=== PATIENT | male | born 1995 | race African-American/Black ===

== ENCOUNTER 2019-07-05 12:33 | Emergency (ER) | payer OTHER ==
[2019-07-05] MEDS ORDERED: BUFFERED LIDOCAINE 10 ML SYRINGE SUBQ STA (13:22)
--- NOTE | 2019-07-05 13:22 | ED Physician Documentation ---
PD HPI UPPER EXT INJURY - Stated complaint Stated Complaint: RT HAND LAC - Chief complaint Chief Complaint: Laceration - History obtained from History obtained from: Patient (24-year-old gentleman with unknown tetanus status was doing dishes at home just prior to arrival and a dish broke and he cut his right, dominant hand. No other injuries. He denies weakness, numbness or tingling of the affected area.) Review of Systems Constitutional: reports: Reviewed and negative Cardiac: reports: Reviewed and negative Respiratory: reports: Reviewed and negative PD PAST MEDICAL HISTORY - Allergies Allergies/Adverse Reactions: Allergies Allergy/AdvReac Type Severity Reaction Status Date / Time No Known Drug Allergies Allergy Verified 07/05/19 12:42 PD ED PE NORMAL - Vitals Vital signs reviewed: Yes - General General: Alert and oriented X 3, Other (Anxious appearing gentleman) - Extremities Extremities: Other (There is a 3 cm laceration over the dorsum of the left thumb over the metacarpal. Is just into subcutaneous tissue, there is no tendon compromise. No distal neurovascular compromise. It is mostly linear but slightly L-shaped at the end.) - Neuro Neuro: Alert and oriented X 3, Normal speech - Psych Psych: Normal mood, Normal affect Results - Vitals Vitals: Vital Signs - 24 hr 07/05/19 12:40 Temperature 36.9 C Heart Rate 90 Respiratory 16 Rate Blood Pressure 135/60 H O2 Saturation 100 Oxygen O2 Source Room air Procedures - Laceration (location) R hand Length in cm: 3 Wound type: Linear, Superficial Neurovascular status: Sensory intact, Motor intact, Vascular intact Tendon involvement: Tendon intact Anesthesia: Lidocaine 1%, With bicarb Wound Preparation: Irrigated copiously NS Skin layer closure: Nylon, Interrupted, Size #-0 - enter number (4-0), Sutures - enter # (7) Other: Tetanus booster given Complexity: Simple Departure - Departure Disposition: 01 Home, Self Care Clinical Impression: Laceration Condition: Good Record reviewed to determine appropriate education?: Yes Instructions: ED Laceration All Comments: Come back for any signs of infection which would include: Redness, swelling, drainage, increased pain, or fevers. You can wash it soap and water. Keep it covered and moist with bacitracin ointment which is available over the counter; avoid neosporin. Follow-up with your physician in About 14 days for suture removal. Forms: Activity restrictions
[2019-07-05] MEDS ORDERED: BUFFERED LIDOCAINE 10 ML SYRINGE ONE (13:24)
[2019-07-05] MEDS ORDERED: HYDROcod/ACET 5/325 Prepack 4 PO STA (13:37)
[2019-07-05 13:47] VITALS: BP 128/78
[2019-07-05] MEDS ORDERED: TETANUS/DIPHTHERIA/PERTUSSIS 0.5 ML SYRINGE IM ONE (13:53)
== END 2019-07-05 14:01 | disposition home or self-care (01) ==
LOC: ED 12:33
DX: S61.411A Laceration without foreign body of right hand, initial encounter (principal); W26.8XXA Contact with other sharp object(s), not elsewhere classified, initial encounter; Y93.G1 Activity, food preparation and clean up; Y92.000 Kitchen of unspecified non-institutional (private) residence as the place of occurrence of the external cause; Z23 Encounter for immunization
CPT/HCPCS: 12002; 90471

== ENCOUNTER 2020-02-24 13:05 | Outpatient (CLI) | payer BC ==
[2020-02-24 16:53] LABS: BASOPHILS # (AUTO) 0.1 10^3/uL (0.0-0.1); BASOPHILS % (AUTO) 0.8 %; EOSINOPHILS # (AUTO) 0.1 10^3/uL (0.0-0.7); EOSINOPHILS % (AUTO) 1.1 %; HGB - HEMOGLOBIN 15.4 g/dL (14.0-18.0); LYMPHOCYTES # (AUTO) 1.7 10^3/uL (1.5-3.5); LYMPHOCYTES % (AUTO) 22.6 %; MEAN CORPUSCULAR HGB CONC 33.3 g/dL (32.0-36.0); MEAN PLATELET VOLUME 11.8 fL (7.4-11.4); MONOCYTES # (AUTO) 0.5 10^3/uL (0.0-1.0); MONOCYTES % (AUTO) 6.6 %; NEUTROPHILS # (AUTO) 5.1 10^3/uL (1.5-6.6); NEUTROPHILS % (AUTO) 68.6 %; PLT - PLATELET COUNT 141 10^3/uL (130-450); RED BLOOD COUNT 4.97 10^6/uL (4.70-6.10); RED CELL DISTRIBUTION WIDTH 12.8 % (12.0-15.0); WHITE BLOOD COUNT 7.4 x10^3/uL (4.8-10.8)
[2020-02-24 17:04] LABS: ALBUMIN 4.8 g/dL (3.2-5.5); BILIRUBIN,TOTAL 0.5 mg/dL (0.2-1.0); CALCIUM 9.6 mg/dL (8.5-10.3); TOTAL PROTEIN 7.2 g/dL (6.7-8.2)
== END 2020-02-24 23:59 | disposition home or self-care (01) ==
LOC: LAB.S 13:05
PROVIDERS: ATTEND Physician Assistant Medical
DX: R19.4 Change in bowel habit (principal); R53.83 Other fatigue
CPT/HCPCS: 36415; 80053; 84443; 85025

== ENCOUNTER 2020-04-30 08:00 | Outpatient (CLI) | payer BC ==
[2020-04-30 15:28] LABS: BASOPHILS # (AUTO) 0.1 10^3/uL (0.0-0.1); EOSINOPHILS # (AUTO) 0.2 10^3/uL (0.0-0.7); EOSINOPHILS % (AUTO) 2.2 %; HGB - HEMOGLOBIN 15.7 g/dL (14.0-18.0); LYMPHOCYTES # (AUTO) 1.5 10^3/uL (1.5-3.5); LYMPHOCYTES % (AUTO) 21.3 %; MEAN CORPUSCULAR HEMOGLOBIN 31.2 pg (27.0-31.0); MEAN CORPUSCULAR HGB CONC 33.9 g/dL (32.0-36.0); MEAN PLATELET VOLUME 11.9 fL (7.4-11.4); MONOCYTES # (AUTO) 0.9 10^3/uL (0.0-1.0); MONOCYTES % (AUTO) 12.1 %; NEUTROPHILS # (AUTO) 4.5 10^3/uL (1.5-6.6); PLT - PLATELET COUNT 143 10^3/uL (130-450); RED BLOOD COUNT 5.03 10^6/uL (4.70-6.10); RED CELL DISTRIBUTION WIDTH 12.4 % (12.0-15.0); WHITE BLOOD COUNT 7.2 x10^3/uL (4.8-10.8)
[2020-04-30 15:56] LABS: ALBUMIN 4.7 g/dL (3.2-5.5); ALBUMIN/GLOBULIN RATIO 1.7 (1.0-2.2); ALKALINE PHOSPHATASE 63 IU/L (42-121); ALT ALANINE AMINOTRANSFERASE 24 IU/L (10-60); AST ASPARTATE AMINOTRANSFERASE 28 IU/L (10-42); BILIRUBIN,TOTAL 0.6 mg/dL (0.2-1.0); BUN - BLOOD UREA NITROGEN 7 mg/dL (6-20); CALCIUM 9.5 mg/dL (8.5-10.3); CARBON DIOXIDE - CO2 29 mmol/L (21-32); CHLORIDE 105 mmol/L (101-111); CREATININE 0.8 mg/dL (0.6-1.2); GLUCOSE 80 mg/dL (70-100); SODIUM 139 mmol/L (135-145); TOTAL PROTEIN 7.5 g/dL (6.7-8.2)
[2020-04-30 16:13] LABS: CRP - C-REACTIVE PROTEIN < 1.0 mg/dL (0-1.0)
== END 2020-04-30 23:59 | disposition home or self-care (01) ==
LOC: LAB.S 08:00
PROVIDERS: ATTEND Physician Assistant
DX: R59.1 Generalized enlarged lymph nodes (principal)
CPT/HCPCS: 36415; 80053; 85025; 85651; 86140

== ENCOUNTER 2020-06-10 16:53 | Outpatient (CLI) | payer BC | END 2020-06-10 16:54 | disposition home or self-care (01) | LOC: COV 16:53 | PROVIDERS: ATTEND Family Medicine | DX: Z20.828 Contact with and (suspected) exposure to other viral communicable diseases (principal) ==

== ENCOUNTER 2021-01-16 16:40 | Emergency (ER) | payer BC ==
[2021-01-16] MEDS ORDERED: HYDROcod/ACETAM 5/325 MG TABLET PO STA (17:03)
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
--- NOTE | 2021-01-16 18:02 | CT Report ---
PROCEDURE: CERVICAL SPINE WO INDICATIONS: neck inj TECHNIQUE: Noncontrast 3 mm thick sections acquired from the skull base to the T4 level. Sagittal and coronal r eformats were then constructed. For radiation dose reduction, the following was used: automated exp osure control, adjustment of mA and/or kV according to patient size. COMPARISON: None. FINDINGS: Image quality: Excellent. Bones: No fractures or dislocations. Visualized superior ribs are intact. Soft tissues: Prevertebral soft tissues are normal in thickness. No paravertebral hematomas. No ap ical pneumothoraces. IMPRESSION: Normal CT of the cervical spine. Reviewed by: Jersey Rosenberg on 01/16/2021 6:01 PM PDT Approved by: Jersey Rosenberg on 01/16/2021 6:01 PM PDT Station ID: [id number]
--- NOTE | 2021-01-16 18:03 | XRAY Report ---
PROCEDURE: Shoulder 3 View RT INDICATIONS: trauma, pain, limited ROM TECHNIQUE: 3 views of the shoulder were acquired. COMPARISON: None. FINDINGS: Bones: No fractures or dislocations. No suspicious bony lesions. Visualized ribs appear intact. Soft tissues: No suspicious soft tissue calcifications. IMPRESSION: Normal right shoulder Reviewed by: Jersey Rosenberg on 01/16/2021 6:02 PM PDT Approved by: Jersey Rosenberg on 01/16/2021 6:02 PM PDT Station ID: [id number]
[2021-01-16 18:34] VITALS: BP 116/66
== END 2021-01-16 18:33 | disposition home or self-care (01) ==
LOC: ED 16:40
DX: S43.101A Unspecified dislocation of right acromioclavicular joint, initial encounter (principal); S16.1XXA Strain of muscle, fascia and tendon at neck level, initial encounter; V28.0XXA Motorcycle driver injured in noncollision transport accident in nontraffic accident, initial encounter
CPT/HCPCS: 72125; 73030; 99283; 99284; A9270

== ENCOUNTER 2021-01-20 06:21 | Emergency (ER) | payer BC ==
[2021-01-20 06:31] VITALS: BP 130/83
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
== END 2021-01-20 06:56 | disposition home or self-care (01) ==
LOC: ED 06:21
DX: K03.81 Cracked tooth (principal); K08.89 Other specified disorders of teeth and supporting structures
CPT/HCPCS: 99282; 99284

== ENCOUNTER 2021-04-20 23:47 | Emergency (ER) | payer BC ==
[2021-04-21 00:09] LABS: BASOPHILS # (AUTO) 0.1 10^3/uL (0.0-0.1); BASOPHILS % (AUTO) 0.7 %; EOSINOPHILS # (AUTO) 0.1 10^3/uL (0.0-0.7); EOSINOPHILS % (AUTO) 0.9 %; HCT - HEMATOCRIT 44.1 % (42.0-52.0); LYMPHOCYTES # (AUTO) 2.4 10^3/uL (1.5-3.5); LYMPHOCYTES % (AUTO) 21.3 %; MEAN CORPUSCULAR HEMOGLOBIN 30.9 pg (27.0-31.0); MEAN CORPUSCULAR VOLUME 90.7 fL (80.0-94.0); MEAN PLATELET VOLUME 10.9 fL (7.4-11.4); MONOCYTES # (AUTO) 0.9 10^3/uL (0.0-1.0); MONOCYTES % (AUTO) 7.5 %; NEUTROPHILS # (AUTO) 7.8 10^3/uL (1.5-6.6); NEUTROPHILS % (AUTO) 69.3 %; PLT - PLATELET COUNT 169 10^3/uL (130-450); RED BLOOD COUNT 4.86 10^6/uL (4.70-6.10); RED CELL DISTRIBUTION WIDTH 12.1 % (12.0-15.0); WHITE BLOOD COUNT 11.3 x10^3/uL (4.8-10.8)
[2021-04-21 00:10] LABS: BILIRUBIN,URINE NEGATIVE (NEGATIVE); CLARITY,URINE CLEAR (CLEAR); GLUCOSE, URINE (UA) NEGATIVE (NEGATIVE); KETONES,URINE (UA) NEGATIVE (NEGATIVE); LEUKOCYTE ESTERASE, URINE NEGATIVE (NEGATIVE); NITRITE,URINE NEGATIVE (NEGATIVE); OCCULT BLOOD,URINE NEGATIVE (NEGATIVE); PROTEIN,URINE NEGATIVE (NEGATIVE); UROBILINOGEN,URINE 0.2 (NORMAL) E.U./dL (NORMAL)
[2021-04-21] MEDS ORDERED: KETOROLAC 60 MG/2 ML VIAL IM STA (00:21)
[2021-04-21 00:23] LABS: ALBUMIN 5.3 g/dL (3.2-5.5); ALBUMIN/GLOBULIN RATIO 2.1 (1.0-2.2); BILIRUBIN,TOTAL 1.1 mg/dL (0.2-1.0); CALCIUM 9.6 mg/dL (8.5-10.3); CREATININE 1.1 mg/dL (0.6-1.2); POTASSIUM 3.2 mmol/L (3.5-5.0); TOTAL PROTEIN 7.8 g/dL (6.7-8.2)
--- NOTE | 2021-04-21 00:29 | ED Physician Documentation ---
PD HPI ABD PAIN - Stated complaint Stated Complaint: ABD PX - Chief complaint Chief Complaint: Abd Pain - History obtained from History obtained from: Patient - History of Present Illness Timing - onset: Enter time (2229), Today Timing - duration: Hours Timing - details: Gradual onset, Still present Quality: Cramping, Sharp, Pain Location: RUQ, Epigastric Improved by: Laying still Worsened by: Moving, Breathing, Position, Palpation Associated symptoms: No: Nausea, Vomiting, Diarrhea, Constipation Similar symptoms before: Has not had sx before Recently seen: Not recently seen - Additional information Additional information: Previously well 26-year-old male awoke this morning with a little bit of pain in his right ear went to work everything was well had some dinner this evening of some type of a soup with cheese and a lot of fatty products in it. An hour later started developing pain in his abdomen. He noted cramping-like sensation took some Tums did not seem to help try to go to the bathroom and his pain got worse, got bad enough that he told his fiance really had to go to the hospital. Never had anything like this before. Review of Systems Constitutional: denies: Fever, Chills Eyes: denies: Decreased vision Ears: reports: Ear pain Nose: denies: Rhinorrhea / runny nose, Congestion Throat: denies: Sore throat Cardiac: denies: Chest pain / pressure, Palpitations Respiratory: denies: Dyspnea, Cough GI: reports: Abdominal Pain. denies: Nausea, Vomiting, Constipation, Diarrhea : denies: Dysuria, Frequency Skin: denies: Rash Musculoskeletal: denies: Neck pain, Back pain, Extremity pain Neurologic: denies: Generalized weakness, Focal weakness, Numbness PD PAST MEDICAL HISTORY - Past Medical History Past Medical History: Yes Cardiovascular: None Respiratory: None Neuro: None Endocrine/Autoimmune: None GI: None : None HEENT: None Psych: Anxiety Musculoskeletal: None Derm: None - Past Surgical History Past Surgical History: No - Present Medications Home Medications: Ambulatory Orders Medication Instructions Recorded Confirmed Amox/Clav 875/125 [Augmentin] 1 each PO Q12H #20 tablet 04/21/21 hydrOXYzine HCL [Hydroxyzine HCl] 25 mg PO QPM 04/21/21 04/21/21 - Allergies Allergies/Adverse Reactions: Allergies Allergy/AdvReac Type Severity Reaction Status Date / Time No Known Drug Allergies Allergy Verified 04/21/21 00:01 - Social History Does the pt smoke?: No Smoking Status: Never smoker Does the pt drink ETOH?: Yes Does the pt have substance abuse?: No Substance Use and Type: Marijuana - Immunizations Immunizations are current?: Yes - POLST Patient has POLST: No PD ED PE NORMAL - Vitals Vital signs reviewed: Yes (Hypertensive) - General General: Alert and oriented X 3, No acute distress, Well developed/nourished - HEENT HEENT: Atraumatic, PERRL, EOMI, Other (Right TM is inflamed along the umbo with intense inflammation in the left is inflamed in general with distortion of landmarks.) - Neck Neck: Supple, no meningeal sign, No bony TTP - Cardiac Cardiac: RRR, No murmur - Respiratory Respiratory: No respiratory distress, Clear bilaterally - Abdomen Abdomen: Normal bowel sounds, Soft, Non distended, No organomegaly, Other (Marked point tenderness of the right upper quadrant worse with deep inspiration. Palpation of this area brings tears to the patient's eyes. There is no specific right lower or left lower quadrant tenderness some minimal epigastric tenderness and no left upper quadrant tenderness) - Back Back: No CVA TTP, No spinal TTP - Derm Derm: Normal color, Warm and dry, No rash - Extremities Extremities: No deformity, No edema - Neuro Neuro: Alert and oriented X 3, property inspector 2-12 intact, No motor deficit, No sensory deficit, Normal speech Eye Opening: Spontaneous Motor: Obeys Commands Verbal: Oriented GCS Score: 15 - Psych Psych: Normal mood, Normal affect Results - Vitals Vitals: Vital Signs - 24 hr 04/20/21 23:50 Temperature 36.5 C Heart Rate 69 Respiratory 18 Rate Blood Pressure 130/93 H O2 Saturation 100 Oxygen O2 Source Room air - Labs Labs: Laboratory Tests 04/20/21 04/20/21 04/21/21 00:05 00:05 00:02 WBC 11.3 H RBC 4.86 Hgb 15.0 Hct 44.1 MCV 90.7 MCH 30.9 MCHC 34.0 RDW 12.1 Plt Count 169 MPV 10.9 Neut # (Auto) 7.8 H Lymph # (Auto) 2.4 Borden # (Auto) 0.9 Eos # (Auto) 0.1 Baso # (Auto) 0.1 Absolute Nucleated RBC 0.00 Nucleated RBC % 0.0 Sodium 138 Potassium 3.2 L Chloride 96 L Carbon Dioxide 31 Anion Gap 11.0 BUN 13 Creatinine 1.1 Estimated GFR (MDRD) 97 Glucose 90 Calcium 9.6 Total Bilirubin 1.1 H AST 171 H ALT 83 H Alkaline Phosphatase 66 Total Protein 7.8 Albumin 5.3 Globulin 2.5 Albumin/Globulin Ratio 2.1 Lipase 27 Urine Color YELLOW Urine Clarity CLEAR Urine pH 6.0 Ur Specific [place] >=1.030 H Urine Protein NEGATIVE Urine Glucose (UA) NEGATIVE Urine Ketones NEGATIVE Urine Occult Blood NEGATIVE Urine Nitrite NEGATIVE Urine Bilirubin NEGATIVE Urine Urobilinogen 0.2 (NORMAL) Ur Leukocyte Esterase NEGATIVE Ur Microscopic Review NOT INDICATED Urine Culture Comments NOT INDICATED - Rads (name of study) u/s gb Radiology: Prelim report reviewed (Impression: 1. Partially contracted gallbladder without evidence of cholelithiasis or acute cholecystitis. Nonobstructing 5 mm inferior R renal stone without evidence of hydronephrosis. Limited evaluation of the pancreas secondary to overlying bowel gas.), EMP read indepedently, See rad report Procedures - Bedside sono Bedside sono by EMP: With use of bedside ultrasound right upper quadrant is imaged the gallbladder is sonographically tender and brings tears to the patient's eyes. With a cursory look I was able to do I did not find gallbladder wall thickening or pericholecystic fluid and no obvious stones. PD MEDICAL DECISION MAKING - ED course Complexity details: reviewed old records, reviewed results, re-evaluated patient, considered differential, d/w patient ED course: Previously well 26-year-old male appears fit and thin has developed pain in his gallbladder after eating a thick cream soup. When I evaluated the patient with bedside ultrasound his gallbladder was full and extremely tender. He received 60 mg of Toradol IM and a formal ultrasound was performed and I reviewed these images and found that there the gallbladder was contracted completely. The patient's pain was improved. He felt much improved at the time of discharge and we turned our attention to waking with the ear pain. On examination he has significant inflammation of both of his ears worse on the left than the right despite the one with the pain is of the right. I offered the patient aggressive treatment or no treatment (wait and see) and he chose aggressive treatment. He was administered dexamethasone 10 mg orally and Augmentin 875. We will treat him for his otitis. I will give the patient information for follow-up with the surgeon and asked him to refrain from having cream soup ever again Departure - Departure Disposition: 01 Home, Self Care Clinical Impression: Gall bladder pain Condition: Stable Instructions: ED Gallbladder Infec Poss Follow-Up: SYMONE STARK PA-C [Primary Care Provider] - [facility] [Provider Group] Prescriptions: Amox/Clav 875/125 [Augmentin] 1 each PO Q12H #20 tablet Comments: Hans this evening it looks like your gallbladder attempted to contract too vigorously after eating your cream soup leading to severe pain. It looks like the gallbladder has contracted fully now on the images shown from the formal ultrasound and the gallbladder attack should be over. There were no stones seen in her gallbladder. The recommendation is to refrain from cream soup or heavy fat meals. A follow-up with the surgeon is indicated if you have further episodes. Today we also found that you had some mild elevation in your liver functions and you should follow-up with your primary care doctor about this within the next month. We also found you had middle ear infection and the expectation is that your pain in your ears will resolve and you will not develop cough or other issues.
[2021-04-21] MEDS ORDERED: DEXAMETHASONE 10 MG/ML VIAL PO STA (01:19)
[2021-04-21] MEDS ORDERED: AMOX/CLAV 875 MG/125 MG TABLET PO STA (01:19)
[2021-04-21] MEDS ORDERED: CHERRY SYRUP 10 ML UDC PO ONE (01:19)
--- NOTE | 2021-04-21 01:30 | Ultrasound Report ---
PROCEDURE: Abdomen Limited INDICATIONS: RUQ pain TECHNIQUE: Real-time scanning was performed of the abdominal and retroperitoneal organs, with image documentatio n. COMPARISON: None. FINDINGS: Liver: Liver is normal in size and homogeneous in echotexture. Gallbladder: Gallbladder is partially contracted likely related to incomplete fasting. Gallbladder wa ll measures less than 3 mm. No visible gallstone or sludge. No pericholecystic fluid. Biliary ducts: Intrahepatic bile ducts are non-dilated. Extrahepatic bile duct caliber measures 3 m m. Normal is 6-7 mm or less in diameter, or 10 mm or less post-cholecystectomy. Pancreas: Pancreas not well visualized secondary to overlying bowel gas. Spleen: Spleen is normal in size and homogeneous in echotexture. Kidneys: Right kidney is normal in size and echotexture. Right kidney measures 10.6 cm long. There is a 0.5 cm inferior calculus without evidence for hydronephrosis. No solid masses. Miscellaneous: No free abdominal fluid. IMPRESSION: 1. Partially contracted gallbladder without evidence for cholelithiasis or acute cholecystitis. 2. Nonobstructing 5 mm inferior right renal stone without evidence for hydronephrosis. 3. Limited evaluation of the pancreas secondary to overlying bowel gas. Reviewed by: Raimundo Stokes MD on 04/21/2021 1:29 AM PDT Approved by: Raimundo Stokes MD on 04/21/2021 1:29 AM PDT Station ID: [id number]
[2021-04-21 01:58] VITALS: BP 115/66
== END 2021-04-21 01:58 | disposition home or self-care (01) ==
LOC: ED 23:47
DX: K82.0 Obstruction of gallbladder (principal); R74.8 Abnormal levels of other serum enzymes; H66.93 Otitis media, unspecified, bilateral
CPT/HCPCS: 36415; 76705; 80053; 81003; 83690; 85025; 96372; 99284; A9270; 81001; 87086

== ENCOUNTER 2022-04-01 08:47 | Emergency (ER) | payer SELFPAY ==
--- NOTE | 2022-04-01 09:08 | ED Physician Documentation ---
PD HPI CHEST PAIN - Stated complaint Stated Complaint: CHEST PX - Chief complaint Chief Complaint: Cardiac - History obtained from History obtained from: Patient - History of Present Illness Timing - onset: Yesterday Timing - onset during: Rest Timing - duration: Days (1) Timing - details: Gradual onset, Still present Quality: Pressure, Sharp, Pain Location: Substernal Radiation: No: Jaw, Neck, Back, Abdominal, Left upper extremity, Right upper extremity Improved by: Rest Worsened by: Inspiration Associated symptoms: No: Shortness of air, Diaphoresis, Nausea, Vomiting, Fee ling faint / dizzy, General Weakness, Palpitations, Cough Similar symptoms before: Has not had sx before Recently seen: Not recently seen - Additional information Additional information: Previously well Hans Mccall is a 27-year-old male who comes to the emergency department this morning with a chief complaint that he has had substernal chest pain starting yesterday that is worse with inspiration. This is not stopped him from doing his usual daily routines. He denies any respiratory component he denies any cough fever sputum production or shortness of breath. He does not recall having this previously. He does have some irritation to the right side of his neck with swallowing. He is previously had issues with otitis media and is currently complaining of some congestion to both ears. Review of Systems Constitutional: denies: Fever Eyes: denies: Decreased vision Ears: reports: Ear pain. denies: Drainage/discharge Nose: denies: Rhinorrhea / runny nose, Congestion Throat: reports: Sore throat Cardiac: denies: Chest pain / pressure, Palpitations Respiratory: denies: Dyspnea, Cough PD PAST MEDICAL HISTORY - Past Medical History Cardiovascular: None Respiratory: None Neuro: None Endocrine/Autoimmune: None GI: None : None HEENT: None Psych: Anxiety Musculoskeletal: None Derm: None - Past Surgical History Past Surgical History: No - Present Medications Home Medications: Ambulatory Orders Medication Instructions Recorded Confirmed Amox/Clav 875/125 [Augmentin] 1 each PO Q12H #20 tablet 04/21/21 hydrOXYzine HCL [Hydroxyzine HCl] 25 mg PO QPM 04/21/21 04/21/21 - Allergies Allergies/Adverse Reactions: Allergies Allergy/AdvReac Type Severity Reaction Status Date / Time No Known Drug Allergies Allergy Verified 04/01/22 08:56 - Social History Does the pt smoke?: No Smoking Status: Never smoker Does the pt drink ETOH?: Yes Does the pt have substance abuse?: No - Immunizations Immunizations are current?: Yes - POLST Patient has POLST: No PD ED PE NORMAL - Vitals Vital signs reviewed: Yes (Hypertensive) - General General: Alert and oriented X 3, No acute distress, Well developed/nourished - HEENT HEENT: Atraumatic, PERRL, EOMI, Ears normal, Moist mucous membranes, Pharynx benign, Dentition benign - Neck Neck: Supple, no meningeal sign, No bony TTP, Other (Mild tenderness to the right lower neck and general tenderness to the thyroid bilaterally no palpable mass. 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, No motor deficit, No sensory deficit, Normal speech Eye Opening: Spontaneous Motor: Obeys Commands Verbal: Oriented GCS Score: 15 - Psych Psych: Normal mood, Normal affect Results - Vitals Vitals: Vital Signs - 24 hr 04/01/22 08:54 Temperature 36.1 C L Heart Rate 83 Respiratory 20 Rate Blood Pressure 128/84 H O2 Saturation 99 Oxygen O2 Source Room air - EKG (time done) 0858 Rate: Rate (enter#) (77) Rhythm: NSR Ischemia: ST elevation c/w repol Compare to prior EKG: Old EKG unavailable Computer interpretation: Agree with computer - Labs Labs: Laboratory Tests 04/01/22 04/01/22 04/01/22 09:28 09:28 09:28 WBC 7.3 RBC 5.30 Hgb 15.9 Hct 46.4 MCV 87.5 MCH 30.0 MCHC 34.3 RDW 12.4 Plt Count 153 MPV 10.8 Neut # (Auto) 5.0 Lymph # (Auto) 1.5 [place] # (Auto) 0.6 Eos # (Auto) 0.1 Baso # (Auto) 0.1 Absolute Nucleated RBC 0.00 Nucleated RBC % 0.0 Sodium 141 Potassium 4.0 Chloride 104 Carbon Dioxide 28 Anion Gap 9.0 BUN 8 Creatinine 0.9 Estimated GFR (MDRD) 122 Glucose 84 Calcium 10.1 Total Bilirubin 0.9 AST 29 ALT 24 Alkaline Phosphatase 60 Troponin I High Sens 3.3 Total Protein 7.7 Albumin 4.9 Globulin 2.8 Albumin/Globulin Ratio 1.8 Lipase 27 TSH 04/01/22 09:28 WBC RBC Hgb Hct MCV MCH MCHC RDW Plt Count MPV Neut # (Auto) Lymph # (Auto) [place] # (Auto) Eos # (Auto) Baso # (Auto) Absolute Nucleated RBC Nucleated RBC % Sodium Potassium Chloride Carbon Dioxide Anion Gap BUN Creatinine Estimated GFR (MDRD) Glucose Calcium Total Bilirubin AST ALT Alkaline Phosphatase Troponin I High Sens Total Protein Albumin Globulin Albumin/Globulin Ratio Lipase TSH 1.71 - Rads (name of study) chest Radiology: Prelim report reviewed (Impression: No acute cardiopulmonary abnormality.), EMP read indepedently, See rad report PD MEDICAL DECISION MAKING - ED course Complexity details: reviewed old records, reviewed results, re-evaluated patient, considered differential, d/w patient ED course: Essentially healthy 27-year-old male presents to the emergency department with substernal chest pain that is pleuritic in nature he has a normal-appearing chest x-ray normal sounding lungs a normal-appearing electrocardiogram and negative troponin and the response to treatment with dexamethasone and Toradol. I did find the patient had some tenderness to his thyroid his TSH was normal I have asked him to follow-up with that should he continue to have these symptoms. Departure - Departure Disposition: 01 Home, Self Care Clinical Impression: Pleuritic chest pain Condition: Stable Instructions: ED Chest Pain Pleurisy Follow-Up: Olga Gallardo ARNP [Credentialed Staff Provider] - Comments: Hans, today it looks like you have pleurisy and this is usually a viral phenomena that causes a pain with breathing in. This is usually an inflammation between the chest wall and the lung and usually resolves within a week. The recommendation is to take some ibuprofen with food for pain relief. Today on examination your thyroid was tender we did not find evidence of a problem with your thyroid on today's laboratory exam. If you continue to have the soreness at the base of your neck follow-up for repeat blood work.
[2022-04-01] MEDS ORDERED: CHERRY SYRUP 10 ML UDC PO ONE (09:21)
[2022-04-01] MEDS ORDERED: KETOROLAC 30 MG/ML VIAL IVP STA (09:21)
[2022-04-01] MEDS ORDERED: DEXAMETHASONE 10 MG/ML VIAL PO STA (09:21)
[2022-04-01 09:34] LABS: BASOPHILS # (AUTO) 0.1 10^3/uL (0.0-0.1); BASOPHILS % (AUTO) 0.8 %; EOSINOPHILS # (AUTO) 0.1 10^3/uL (0.0-0.7); HCT - HEMATOCRIT 46.4 % (42.0-52.0); HGB - HEMOGLOBIN 15.9 g/dL (14.0-18.0); LYMPHOCYTES # (AUTO) 1.5 10^3/uL (1.5-3.5); LYMPHOCYTES % (AUTO) 20.6 %; MEAN CORPUSCULAR HGB CONC 34.3 g/dL (32.0-36.0); MEAN CORPUSCULAR VOLUME 87.5 fL (80.0-94.0); MEAN PLATELET VOLUME 10.8 fL (7.4-11.4); MONOCYTES # (AUTO) 0.6 10^3/uL (0.0-1.0); MONOCYTES % (AUTO) 8.3 %; NEUTROPHILS % (AUTO) 69.2 %; PLT - PLATELET COUNT 153 10^3/uL (130-450); RED CELL DISTRIBUTION WIDTH 12.4 % (12.0-15.0); WHITE BLOOD COUNT 7.3 x10^3/uL (4.8-10.8)
[2022-04-01 09:45] LABS: ALBUMIN 4.9 g/dL (3.2-5.5); ALBUMIN/GLOBULIN RATIO 1.8 (1.0-2.2); BILIRUBIN,TOTAL 0.9 mg/dL (0.2-1.0); CALCIUM 10.1 mg/dL (8.5-10.3); CREATININE 0.9 mg/dL (0.6-1.2); TOTAL PROTEIN 7.7 g/dL (6.7-8.2)
--- NOTE | 2022-04-01 10:07 | XRAY Report ---
PROCEDURE: Chest 1 View X-Ray INDICATIONS: Chest pain TECHNIQUE: One view of the chest was acquired. COMPARISON: None. FINDINGS: Surgical changes and devices: None. Lungs and pleura: No pleural effusions or pneumothorax. Lungs are clear. Mediastinum: Mediastinal contours appear normal. Heart size is normal. Bones and chest wall: No suspicious bony lesions. Overlying soft tissues appear unremarkable. IMPRESSION: No acute cardiopulmonary abnormality. Reviewed by: Ambrocio Norman MD on 04/01/2022 10:05 AM PDT Approved by: Ambrocio Norman MD on 04/01/2022 10:05 AM PDT Station ID: [id number]
[2022-04-01 11:24] VITALS: BP 110/63
== END 2022-04-01 11:24 | disposition home or self-care (01) ==
LOC: ED 08:47
DX: R09.1 Pleurisy (principal)
CPT/HCPCS: 36415; 71045; 80053; 83690; 84443; 84484; 85025; 93005; 96374; 99284; A9270

== ENCOUNTER 2023-04-21 15:58 | Outpatient (CLI) | payer BC ==
--- NOTE | 2023-04-21 18:10 | XRAY Report ---
PROCEDURE: Cervical Spine 2 View INDICATIONS: CERVICAL SPASM TECHNIQUE: 3 view(s) of the cervical spine were acquired. COMPARISON: None. FINDINGS: Bones: Straightening of normal cervical lordosis. Vertebral body heights are well-maintained. No trau matic subluxation. Odontoid view is within normal limits. Soft tissues: No pathologic prevertebral soft tissue swelling. IMPRESSION: Straightening of normal cervical lordosis could be due to spasm. No acute osseous abnormality. If the re is high concern for further derangement, consider MRI evaluation. Reviewed by: Adithya Malagon MD on 04/21/2023 6:08 PM PDT Approved by: Adithya Malagon MD on 04/21/2023 6:08 PM PDT Station ID: [id number]
--- NOTE | 2023-04-21 18:11 | XRAY Report ---
PROCEDURE: Thoracic Spine 2 View INDICATIONS: BACK PAIN TECHNIQUE: 3 views of the thoracic spine were acquired. COMPARISON: None. FINDINGS: Bones: The cervical thoracic junction is not well seen even on swimmer's view. Vertebral body heights are well-maintained. No traumatic subluxation. Soft tissues: No suspicious calcifications. IMPRESSION: No acute radiographic abnormality. If there is high concern for further derangement, consider MRI davon luation. The cervical thoracic junction is not well seen. Reviewed by: Adithya Malagon MD on 04/21/2023 6:09 PM PDT Approved by: Adithya Malagon MD on 04/21/2023 6:09 PM PDT Station ID: [id number]
== END 2023-04-21 15:59 | disposition home or self-care (01) ==
LOC: DI 15:58
PROVIDERS: ATTEND Family Medicine
DX: M62.838 Other muscle spasm (principal); M54.6 Pain in thoracic spine

== ENCOUNTER 2024-02-28 07:34 | Emergency (ER) | payer BC ==
--- NOTE | 2024-02-28 07:50 | ED Physician Documentation ---
PD HPI ABD PAIN - Stated complaint Stated Complaint: LRQ PX - Chief complaint Chief Complaint: Abd Pain - History obtained from History obtained from: Patient - History of Present Illness Timing - onset: Last night (onset during the night with worsening into this morning of RLQ abd pain and nausea. Has increased to having pain with walking and jostle, palpation and abd tightening.) Timing - duration: Hours Timing - details: Gradual onset, Still present Quality: Cramping, Aching, Pain Location: RLQ Radiation: No: Chest, Lower back, Right flank Worsened by: Moving, Position, Palpation. No: Breathing Associated symptoms: Nausea, Diarrhea (chronic loose stools for patient anyway, but this morning is looset than usual.). No: Fever, Vomiting, Constipation Similar symptoms before: Has not had sx before Review of Systems Constitutional: denies: Fever, Chills Nose: denies: Rhinorrhea / runny nose, Congestion Throat: denies: Sore throat Respiratory: denies: Cough PD PAST MEDICAL HISTORY - Past Medical History Past Medical History: Yes Cardiovascular: None Respiratory: None Neuro: None Endocrine/Autoimmune: None GI: None : None HEENT: None Psych: Anxiety Musculoskeletal: None Derm: None - Past Surgical History Past Surgical History: No - Present Medications Home Medications: Ambulatory Orders Medication Instructions Recorded Confirmed No Known Home Medications 02/28/24 02/28/24 - Allergies Allergies/Adverse Reactions: Allergies Allergy/AdvReac Type Severity Reaction Status Date / Time No Known Drug Allergies Allergy Verified 02/28/24 07:41 - Social History Does the pt smoke?: Yes Smoking Status: Current every day smoker Does the pt drink ETOH?: Yes Does the pt have substance abuse?: Yes Substance Use and Type: Marijuana - Immunizations Immunizations are current?: Yes - POLST Patient has POLST: No PD ED PE NORMAL - Vitals Vital signs reviewed: Yes - General General: Alert and oriented X 3, Well developed/nourished, Other (appears in pain lower abd. ) - Cardiac Cardiac: RRR, No murmur - Respiratory Respiratory: No respiratory distress, Clear bilaterally - Abdomen Abdomen: Normal bowel sounds, Soft, Non distended, No organomegaly, Other (tender RLQ focally with notable guaridng, percussion referred and rebound tednerness. Very concerning for appendicitis given the location.) Results - Vitals Vitals: Vital Signs - 24 hr 02/28/24 02/28/24 02/28/24 07:42 09:22 10:58 Temperature 36.4 C L Heart Rate 82 62 77 Respiratory 16 16 16 Rate Blood Pressure 112/59 L 110/65 118/80 O2 Saturation 99 100 100 02/28/24 12:07 Temperature 36.2 C L Heart Rate 98 Respiratory 16 Rate Blood Pressure 116/87 H O2 Saturation 97 Oxygen O2 Source Room air - Labs Labs: Laboratory Tests 02/28/24 02/28/24 02/28/24 07:50 07:55 07:55 WBC 6.8 RBC 4.69 L Hgb 14.2 Hct 42.2 MCV 90.0 MCH 30.3 MCHC 33.6 RDW 12.8 Plt Count 174 MPV 10.5 Neut # (Auto) 4.0 Lymph # (Auto) 2.0 [place] # (Auto) 0.6 Eos # (Auto) 0.2 Baso # (Auto) 0.1 Absolute Nucleated RBC 0.00 Nucleated RBC % 0.0 Sodium 138 Potassium 4.3 Chloride 105 Carbon Dioxide 30 Anion Gap 3.0 L BUN 9 Creatinine 1.0 Estimated GFR (MDRD) 106 Glucose 94 Calcium 9.3 Total Bilirubin 0.3 AST 22 ALT 25 Alkaline Phosphatase 66 Total Protein 7.0 Albumin 4.5 Globulin 2.5 Albumin/Globulin Ratio 1.8 Lipase 122 H Urine Color YELLOW Urine Clarity CLEAR Urine pH 6.0 Ur Specific [place] 1.025 Urine Protein NEGATIVE Urine Glucose (UA) NEGATIVE Urine Ketones NEGATIVE Urine Occult Blood NEGATIVE Urine Nitrite NEGATIVE Urine Bilirubin NEGATIVE Urine Urobilinogen 0.2 (NORMAL) Ur Leukocyte Esterase NEGATIVE Ur Microscopic Review NOT INDICATED Urine Culture Comments NOT INDICATED PD Medical Decision Making - ED course Complexity details: reviewed results (CT results came back stating unable to visualized the appendix. No other findings noted. ), re-evaluated patient (on recehceck after pain meds and fluids, pain is lessened but still moderate. exam is still localized to RLQ with peritoneal signs locally. WBC normal. ), considered differential (onset during night RLQ pain that is worsening, with local tenderness and fidnings very concerning for appendicitis.), d/w patient, d/w small business consultant (given the course and exam, without seeing appendix on CT, I am concerned about it. With continued tendrness one xam, I did call Dr. Castro ceramic tile installation helper who came to the ED for eval. She examined the patient and the tendernes had decreased fairly well since my last exam. Pt states has eased. ) ED course: The pain and tendrness has decreased quite a bit, wihtout further pain meds in past 1-2 hours. He is feeling hungry now aas well. Discussed return precautions. No Rx given for pain but can use tylenol/Ibuprofen at home as these would not mask progression to worse process. Departure - Departure Disposition: Home, Self Care Clinical Impression: Abdominal pain Condition: Stable Record reviewed to determine appropriate education?: Yes Instructions: ED Abdominal Pain Appendx Poss Comments: Regular fluids through the day today. No food initially but just clear liquids for the first several hours or so. Progress to more normal food later today if you are still feeling well. Your pain has improved. There would still be suspicious for an appendicitis that may be just temporarily retrieved. Return to the ER if you have increased pain again or associated nausea vomiting, fevers, bloody stool or other concerns. If it were some other cause that is now improved, then I would anticipate no further pain or just mild in the next day or 2. Tylenol ibuprofen is okay to take as it will not mask any more significant process. Forms: PCP List Discharge Date/Time: 02/28/24 12:08
[2024-02-28 08:04] LABS: BASOPHILS # (AUTO) 0.1 10^3/uL (0.0-0.1); BASOPHILS % (AUTO) 1.3 %; EOSINOPHILS # (AUTO) 0.2 10^3/uL (0.0-0.7); EOSINOPHILS % (AUTO) 2.9 %; HCT - HEMATOCRIT 42.2 % (42.0-52.0); HGB - HEMOGLOBIN 14.2 g/dL (14.0-18.0); LYMPHOCYTES % (AUTO) 28.8 %; MEAN CORPUSCULAR HEMOGLOBIN 30.3 pg (27.0-31.0); MEAN CORPUSCULAR HGB CONC 33.6 g/dL (32.0-36.0); MEAN PLATELET VOLUME 10.5 fL (7.4-11.4); MONOCYTES # (AUTO) 0.6 10^3/uL (0.0-1.0); MONOCYTES % (AUTO) 8.2 %; NEUTROPHILS % (AUTO) 58.7 %; PLT - PLATELET COUNT 174 10^3/uL (130-450); RED BLOOD COUNT 4.69 10^6/uL (4.70-6.10); RED CELL DISTRIBUTION WIDTH 12.8 % (12.0-15.0); WHITE BLOOD COUNT 6.8 x10^3/uL (4.8-10.8)
[2024-02-28 08:06] LABS: BILIRUBIN,URINE NEGATIVE (NEGATIVE); GLUCOSE, URINE (UA) NEGATIVE (NEGATIVE); KETONES,URINE (UA) NEGATIVE (NEGATIVE); LEUKOCYTE ESTERASE, URINE NEGATIVE (NEGATIVE); NITRITE,URINE NEGATIVE (NEGATIVE); OCCULT BLOOD,URINE NEGATIVE (NEGATIVE); PROTEIN,URINE NEGATIVE (NEGATIVE); UROBILINOGEN,URINE 0.2 (NORMAL) E.U./dL (NORMAL)
[2024-02-28] MEDS ORDERED: iohexoL-300 100 ML VIAL ONE (08:13)
[2024-02-28 08:14] LABS: CLARITY,URINE CLEAR (CLEAR)
[2024-02-28 08:22] LABS: ALBUMIN 4.5 g/dL (3.2-5.5); ALBUMIN/GLOBULIN RATIO 1.8 (1.0-2.2); BILIRUBIN,TOTAL 0.3 mg/dL (0.2-1.0); CALCIUM 9.3 mg/dL (8.5-10.3); POTASSIUM 4.3 mmol/L (3.5-4.5)
[2024-02-28] MEDS: SODIUM CHLORIDE 0.9% 1,000 ML IV STA (08:24)
[2024-02-28] MEDS: ONDANSETRON 4 MG/2 ML VIAL IVP STA (08:25)
[2024-02-28] MEDS: KETOROLAC 15 MG/ML VIAL IVP STA (08:25)
[2024-02-28] MEDS: HYDROmorphone 1 MG/ML CARPUJECT IVP STA (08:25)
[2024-02-28] MEDS: iohexoL-300 100 ML VIAL IVP ONE (08:55)
--- NOTE | 2024-02-28 09:22 | CT Report ---
PROCEDURE: Abdomen/Pelvis W INDICATIONS: RLQ pain today, likely appendix CONTRAST: Omni 300 100ml TECHNIQUE: After the administration of intravenous contrast, a CT scan of the abdomen and pelvis was performed. Images were recorded and evaluated at appropriate window settings. Reformats: coronal and sagittal. F or radiation dose reduction, the following was used: automated exposure control, adjustment of mA and /or kV according to patient size. COMPARISON: None. FINDINGS: Image quality: Diagnostic. Lower chest: Unremarkable. Liver: No solid mass. Gallbladder: No radiopaque stones or wall thickening. Biliary tree: No intrahepatic or extrahepatic dilation, accounting for age. Spleen: No splenomegaly. Pancreas: No pancreatic ductal dilation. Adrenals: No adrenal nodule. Kidneys and ureters: No hydronephrosis. No renal cystic lesion which requires follow up. No solid mas s. Stomach, bowel and peritoneum: There is a remarkable paucity of intra-abdominal fat, making it quite difficult to evaluate for bowel pathology, without the presence of bowel contrast. The appendix is no t identified. No clear evidence of inflammation. Lymph nodes: No central or retroperitoneal adenopathy. Vessels: No infrarenal aortic aneurysm. Patent portal vein. PELVIS Reproductive organs: Unremarkable. Bladder: No abnormal wall thickening, accounting for underdistention. Pelvic lymph nodes: No pelvic adenopathy by size criteria. Bones: No aggressive osseous abnormality. Other: No significant ventral or inguinal hernia. IMPRESSION: 1. The study is of very limited value in excluding acute appendicitis due to the paucity of intra-abd ominal fat. No clear evidence of acute appendicitis. Comment: Recommend appendix protocol ultrasound if continue to suspect acute appendicitis versus deci lacie making based on clinical suspicion and physical examination. Alternatively, this study can be re peated with IV and oral contrast, as long as oral contrast is able to travel into the colon and opaci fy the right lower quadrant structures. Reviewed by: Jarrell Koroma MD on 02/28/2024 9:21 AM PDT Approved by: Jarrell Koroma MD on 02/28/2024 9:21 AM PDT Station ID: [id number]
--- NOTE | 2024-02-28 11:30 | CONSULTATION NOTE ---
Referring Provider Name of Referring Provider:: ED (Demar) Consult Date: 02/28/24 Chief Complaint - Chief Complaint Chief Complaint: RLQ pain History of Present Illness - Admitted From Admitted From:: n/a - History Obtained From Records Reviewed: yes History obtained from: patient, ED provider Exam Limitations: none - History of Present Illness HPI Comment/Other: The patient states he was in his normal state of health yesterday evening and ate a normal dinner. He went to bed and slept poorly this morning. When he woke up this morning, he had a single loose, nonbloody bowel movement and noted pain in his right lower quadrant. His pain did not resolve in the first couple of hours being awake, which prompted him to present to the emergency department. He states he is hungry. He denies any nausea, vomiting, anorexia, fevers, chills, or recent illness. He has never had similar pain in the past. He has no history of inflammatory bowel disease. History - Past Medical History Cardiovascular: reports: None Respiratory: reports: None Neuro: reports: None Endocrine/Autoimmune: reports: None GI: reports: None : reports: None HEENT: reports: None Psych: reports: Anxiety Musculoskeletal: reports: None Derm: reports: None MRSA Hx?: No - POLST Patient has POLST: No Meds/Allgy - Home Medications Home Medications: Ambulatory Orders Medication Instructions Recorded Confirmed No Known Home Medications 02/28/24 02/28/24 - Allergies Allergies/Adverse Reactions: Allergies Allergy/AdvReac Type Severity Reaction Status Date / Time No Known Drug Allergies Allergy Verified 02/28/24 07:41 Review of Systems - Constitutional Constitutional: reports: Other (A complete 10 point review of symptoms is otherwise negative except for that noted in HPI and PMH.) Exam - Vital Signs Reviewed Vital Signs: Yes Vital Signs: Vital Signs x48h Temp Pulse Resp BP Pulse Ox 02/28/24 10:58 77 16 118/80 100 02/28/24 09:22 62 16 110/65 100 02/28/24 07:42 36.4 C L 82 16 112/59 L 99 - Physical Exam Comments/Other: GEN: No acute distress, appears stated age, very thin body habitus, alert and oriented HEENT: NCAT, MMM, EOMI NEURO: CN II-XII grossly intact, no obvious focal deficits CV: RRR PULM: Nonlabored, on room air ABD: soft, non tender, no rebound or guarding. Specifically, the patient is nontender to superficial or deep palpation in his right lower quadrant at the time of my exam. He has minimal tenderness to deep palpation in the epigastrium. Negative Rovsing, negative psoas, negative heeltap CIRCULATORY: no clubbing, cyanosis, or edema SKIN: no lesions appreciated LYMPH: no obvious lymphadenopathy MSK: 4/4 strength in all extremities PSYCH: Affect is appropriate Conclusion and Plan - Lab Results Laboratory Results 02/28/24 07:55: Sodium 138, Potassium 4.3, Chloride 105, Carbon Dioxide 30, Anion Gap 3.0 L, BUN 9, Creatinine 1.0, Estimated GFR (MDRD) 106, Glucose 94, Calcium 9.3, Total Bilirubin 0.3, AST 22, ALT 25, Alkaline Phosphatase 66, Total Protein 7.0, Albumin 4.5, Globulin 2.5, Albumin/Globulin Ratio 1.8, Lipase 122 H 02/28/24 07:55: WBC 6.8, RBC 4.69 L, Hgb 14.2, Hct 42.2, MCV 90.0, MCH 30.3, MCHC 33.6, RDW 12.8, Plt Count 174, MPV 10.5, Neut # (Auto) 4.0, Lymph # (Auto) 2.0, [place] # (Auto) 0.6, Eos # (Auto) 0.2, Baso # (Auto) 0.1, Absolute Nucleated RBC 0.00, Nucleated RBC % 0.0 02/28/24 07:50: Urine Color YELLOW, Urine Clarity CLEAR, Urine pH 6.0, Ur Specific [place] 1.025, Urine Protein NEGATIVE, Urine Glucose (UA) NEGATIVE, Urine Ketones NEGATIVE, Urine Occult Blood NEGATIVE, Urine Nitrite NEGATIVE, Urine Bilirubin NEGATIVE, Urine Urobilinogen 0.2 (NORMAL), Ur Leukocyte Esterase NEGATIVE, Ur Microscopic Review NOT INDICATED, Urine Culture Comments NOT INDICATED - Consultation Note Consultation Note: This is a 29-year-old gentleman with: 1. Right lower quadrant abdominal pain, rule out appendicitis The patient's laboratory studies, vital signs are within normal limits. White blood cell count is within normal limits and he has no left shift. I personally interpreted the images from his CT scan performed today. I also reviewed the report. The patient's appendix is not well-visualized on any of the views. There is no obvious inflammation in the right lower quadrant. There is no free fluid or free air. Unfortunately, the study is unable to rule in or rule out appendicitis in and of itself. -The patient's abdominal exam is benign at the time of my visit today. Given the patient's improvement in his exam, normal laboratory studies, and equivocal CT scan, at this time I feel it is appropriate to advance the patient's diet and trial conservative management. He does not appear to have appendicitis currently. I do not recommend starting antibiotics as he does not have a day kocytosis. If his symptoms return and/or worsen, I have encouraged him to come back to the emergency department to be reevaluated. Thank you for consulting me in the care of this patient!
[2024-02-28 12:15] VITALS: BP 116/87; O2SAT 97
== END 2024-02-28 12:08 | disposition home or self-care (01) ==
LOC: ED 07:34
DX: R10.31 Right lower quadrant pain (principal); R11.0 Nausea; F17.200 Nicotine dependence, unspecified, uncomplicated
CPT/HCPCS: 36415; 74177; 80053; 81003; 83690; 85025; 96374; 99283; 99284; J1170; Q9967; 81001; 87086